=== PATIENT | female | born 1955 | race Caucasian/White ===

== ENCOUNTER 2020-08-01 20:23 | Emergency (ER) | payer MEDICARE ==
[~2020-08-01] VITALS: Ht 160 cm; Wt 72.3 kg
[2020-08-01] MEDS ORDERED: NOXI1TAB PO (20:34)
[2020-08-01] MEDS ORDERED: ALTA1CAP3 PO (20:34)
[2020-08-01 21:30] VITALS: BP 213/99
[2020-08-01] MEDS ORDERED: CYCLOBENZAPRINE 5MG TABLET PO ONE (22:35)
[2020-08-01] MEDS ORDERED: LIDOCAINE 5% (LIDODERM) PATCH TD ONE (22:35)
[2020-08-01] MEDS ORDERED: KETOROLAC 60MG 2ML VIAL IM ONE (22:35)
[2020-08-01] MEDS ORDERED: **hydrALAZINE** 10 MG TAB PO ONE (23:30)
[2020-08-01] MEDS ORDERED: LIDO0.052 TOP (23:35)
[2020-08-01] MEDS ORDERED: CYCL5TAB PO (23:35)
[2020-08-01] MEDS ORDERED: IBUP-1022 PO (23:35)
[2020-08-02 00:16] VITALS: BP 191/88
[2020-08-02] MEDS ORDERED: **NOTE PATIENT COMMENT** MISC XX SCH (21:00)
== END 2020-08-02 00:29 | disposition home or self-care (01) ==
LOC: M ED 20:23
DX: M54.30 Sciatica, unspecified side (principal); I10 Essential (primary) hypertension; Z88.0 Allergy status to penicillin; Z88.2 Allergy status to sulfonamides; Z88.1 Allergy status to other antibiotic agents
CPT/HCPCS: 96372; 99284; J1885

== ENCOUNTER 2020-08-03 16:31 | Emergency (ER) | payer MEDICARE ==
[~2020-08-03] VITALS: Ht 160 cm; Wt 71.8 kg
[~2020-08-03 16:31] MED LIST: ALTA1CAP3 PO; CYCL5TAB PO; IBUP-1022 PO; LIDO0.052 TOP; NOXI1TAB PO
--- NOTE | 2020-08-03 20:46 | REPVR ---
PROCEDURE INFORMATION: Exam: XR Chest Exam date and time: 08/03/2020 8:17 PM Age: 65 years old Clinical indication: Other: Elevated BP TECHNIQUE: Imaging protocol: XR of the chest. Views: 2 views. COMPARISON: No relevant prior studies available. FINDINGS: Lungs: Unremarkable. No consolidation. Pleural spaces: Unremarkable. No pleural effusion. No pneumothorax. Heart/Mediastinum: Unremarkable. No cardiomegaly. Vasculature: Uncoiled thoracic aorta. Bones/joints: Unremarkable. IMPRESSION: No acute findings. Electronically signed by: Theodore Palomo On 08/03/2020 20:45:47 PM
[2020-08-03 20:56] LABS: BASO % 0.4 % (0.0-1.0); EOS # 0.1 10^3/uL (0.0-0.5); EOS % 1.1 % (0.0-3.0); HEMATOCRIT 47.8 % (36.0-47.0); HEMOGLOBIN 16.1 g/dl (12.0-15.5); LYMPH # 2.3 10^3/uL (1.5-5.0); LYMPH % 27.2 % (24.0-44.0); MEAN CORPUSCULAR HEMOGLOBIN 29.2 pg (27.0-33.0); MEAN CORPUSCULAR HGB CONC 33.7 g/dl (32.0-36.5); MEAN CORPUSCULAR VOLUME 86.8 fl (80.0-96.0); MONO # 0.5 10^3/uL (0.0-0.8); MONO % 6.2 % (2.0-8.0); NEUTROPHILS # 5.6 10^3/uL (1.5-8.5); NEUTROPHILS % 64.9 % (36.0-66.0); PLATELET COUNT, AUTOMATED 248 10^3/uL (150-450); RED BLOOD COUNT 5.51 10^6/uL (4.00-5.40); WHITE BLOOD COUNT 8.6 10^3/uL (4.0-10.0)
[2020-08-03 21:27] LABS: CK-MB VALUE MASS < 1.0 NG/ML (<3.6); CPK CREATINE PHOSPHOKINASE 52 U/L (26-192); MB/CK RELATIVE INDEX 1.92 (< OR =4); TROPONIN I < 0.02 NG/ML (< 0.10)
[2020-08-03 22:01] VITALS: BP 182/95
--- NOTE | 2020-08-04 21:31 | ECGEPIP ---
[facility] - ED Test Date: 2020-08-03 Pat Name: ANGELLA ADEN Department: Room: - Gender: Female Parts Counterperson: [facility] : 1955 Requested By: RADHA Marquez PA-C Order Number: [id number] Reading MD: Flavia Granger Measurements Intervals [place] Rate: 87 P: 52 DE: 152 QRS: 9 QRSD: 82 T: 38 QT: 364 QTc: 438 Interpretive Statements Normal sinus rhythm Left ventricular hypertrophy with repolarization abnormality ( R in aVL , Sokolow-Vasquez , Johnson product ) NSTTW abnormalities No prior Vasquez , [place] product ) NSTTW abnormalities No prior Electronically Signed on 08-04-2020 21:31:30 EDT by Flavia Granger
== END 2020-08-03 22:01 | disposition home or self-care (01) ==
LOC: M ED 16:31
DX: I10 Essential (primary) hypertension (principal); M54.30 Sciatica, unspecified side; R79.89 Other specified abnormal findings of blood chemistry; Z86.79 Personal history of other diseases of the circulatory system; Z79.899 Other long term (current) drug therapy; Z88.0 Allergy status to penicillin; Z88.1 Allergy status to other antibiotic agents; Z88.2 Allergy status to sulfonamides

== ENCOUNTER → 2020-08-24 | Outpatient (CLI) | payer MEDICARE ==
[2020-08-24 11:02] LABS: MALB URINE SIEMENS 17.2 MG/L; MAU/CREAT RATIO 19.7 MCG/MG (0.0-30.0)
[2020-08-24 11:12] LABS: ALBUMIN 3.8 GM/DL (3.2-5.2); BLOOD UREA NITROGEN 22 MG/DL (7-18); CARBON DIOXIDE LEVEL 32 MEQ/L (21-32); CHLORIDE LEVEL 101 MEQ/L (98-107); CHOLESTEROL LEVEL 219 MG/DL (<200); CHOLESTEROL RISK RATIO 5.475 (<5); CREATININE FOR GFR 0.73 MG/DL (0.55-1.30); FREE T4 1.28 NG/DL (0.76-1.46); GLOMERULAR FILTRATION RATE > 60.0 (>45); GLUCOSE, FASTING 107 MG/DL (70-100); HDL CHOLESTEROL 40 MG/DL (>40); LDL CHOLESTEROL 153 MG/DL (<100); NON-HDL-C 179 MG/DL; PHOSPHORUS LEVEL 3.5 MG/DL (2.5-4.9); POTASSIUM SERUM 3.9 MEQ/L (3.5-5.1); SODIUM LEVEL 137 MEQ/L (136-145); TRIGLYCERIDES LEVEL 130 MG/DL (<150)
[2020-08-27 18:08] LABS: METANEPHRINE PLASMA 35.7 pg/mL (0.0-88.0); NORMETANEPHRINE PLASMA 137.9 pg/mL (0.0-191.8)
== END ==
LOC: M LAB 09:11
PROVIDERS: ATTEND Internal Medicine Cardiovascular Disease
DX: I10 Essential (primary) hypertension (principal)

== ENCOUNTER → 2020-08-25 | Outpatient (REF) | payer MEDICARE | LOC: M LAB 16:25 | PROVIDERS: ATTEND Internal Medicine Cardiovascular Disease | DX: I10 Essential (primary) hypertension (principal) ==

== ENCOUNTER → 2020-09-02 | Outpatient (CLI) | payer MEDICARE ==
--- NOTE | 2020-09-02 09:04 | REP ---
INDICATION: ESSENTIAL (PRIMARY) HYPERTENSION; HTN. COMPARISON: None. TECHNIQUE: Real-time sonographic evaluation of the kidneys is performed. Duplex Doppler evaluation of renal arteries performed. FINDINGS: Renal cortical echogenicity pattern is normal bilaterally and contours are smooth. There is no evidence of hydronephrosis, cyst, mass, or calculus in either kidney. The right kidney measures 11.9 x 4.5 x 4.5 cm. Left renal dimensions are 12.4 x 5.1 x 5.2 cm. Urinary bladder is empty. The peak systolic velocity of the abdominal aorta at the level of the renal arteries is 117.8 centimeters/second. The peak systolic velocity of the main right renal artery is 87.4 centimeter/second, renal to aortic ratio is 0.7. Resistive indices right kidney range between 0.73 and 0.74. Acceleration times range between 0.02 and 0.03. The peak systolic velocity of the main left renal artery is 75.2 centimeters/second, renal to aortic ratio 0.6. Resistive indices left kidney range between 0.72 and 0.77. Acceleration times range between 0.03 and 0.04. IMPRESSION: No compelling duplex Doppler sonographic evidence of hemodynamically significant stenosis of the renal arteries bilaterally. <Electronically signed by Pato Zhu > 09/02/20 [id number]
== END ==
LOC: M RAD 07:36
PROVIDERS: ATTEND Internal Medicine Cardiovascular Disease
DX: I10 Essential (primary) hypertension (principal)

== ENCOUNTER → 2020-09-05 | Outpatient (CLI) | payer MEDICARE ==
--- NOTE | 2020-09-05 13:44 | REPVR ---
PROCEDURE INFORMATION: Exam: MR Lumbar Spine Without Contrast. Exam date and time: 09/05/2020 11:43 AM Age: 65 years old Clinical indication: Condition or disease; Disc degeneration; Lumbar region TECHNIQUE: Imaging protocol: Multiplanar magnetic resonance images of the lumbar spine without contrast. COMPARISON: RENAL US 09/02/2020 7:49 AM FINDINGS: Normal lumbar lordosis. No spondylolisthesis or marrow edema to suggest acute osseous injury. Heterogeneous marrow signal intensity likely from fatty infiltration. Degenerative disc disease, moderate at L5-S1 with type 3 reactive endplate signal changes. The distal spinal cord appears normal. At L1-L2, there is no significant spinal canal or neural foraminal narrowing. At L2-L3, there is no significant spinal canal or neural foraminal narrowing. At L3-L4, there is a left paracentral/foraminal zone disc extrusion with superior migration measuring 1.9 x 0.8 x 1.8 cm, with disruption of the disc best seen sagittal T1 image 6. This lesion effaces the left lateral recess with mass effect on the traversing L4 nerve roots. Mild spinal canal narrowing. Mild left neural foraminal narrowing with slight displacement of the exiting nerve root. At L4-L5, there is mild circumferential disc bulge and a small right foraminal zone disc protrusion. No significant spinal canal stenosis. Mild bilateral neural foraminal narrowing. Moderate bilateral facet arthrosis. At L5-S1, there is a small central disc protrusion and mild discogenic osteophytes. No significant spinal canal stenosis. Minimal bilateral inferior neural foraminal narrowing. Moderate bilateral facet arthrosis. IMPRESSION: Multilevel lumbar spine degenerative change most pronounced at L3-L4 with a left paracentral/foraminal zone disc extrusion with superior migration displacing the traversing L4 nerve roots in the lateral recess. Electronically signed by: Reji Min On 09/05/2020 13:44:21 PM
== END ==
LOC: M RAD 09:40
PROVIDERS: ATTEND Physician Assistant
DX: M51.36 Other intervertebral disc degeneration, lumbar region (principal)

== ENCOUNTER → 2020-09-07 | Outpatient (CLI) | payer MEDICARE | LOC: M LAB 08:47 | PROVIDERS: ATTEND Internal Medicine Cardiovascular Disease | DX: E24.9 Cushing's syndrome, unspecified (principal); I10 Essential (primary) hypertension ==

== ENCOUNTER → 2020-09-09 | Outpatient (CLI) | payer MEDICARE ==
[2020-09-09 10:54] LABS: HEMOGLOBIN A1c 5.7 %
[2020-09-09 11:05] LABS: BLOOD UREA NITROGEN 19 MG/DL (7-18); CALCIUM LEVEL 8.8 MG/DL (8.8-10.2); CARBON DIOXIDE LEVEL 29 MEQ/L (21-32); CHLORIDE LEVEL 102 MEQ/L (98-107); CREATININE FOR GFR 0.74 MG/DL (0.55-1.30); GLOMERULAR FILTRATION RATE > 60.0 (>45); GLUCOSE, FASTING 103 MG/DL (70-100); POTASSIUM SERUM 3.8 MEQ/L (3.5-5.1); SODIUM LEVEL 137 MEQ/L (136-145)
== END ==
LOC: M LAB 09:16
PROVIDERS: ATTEND Internal Medicine Cardiovascular Disease
DX: I10 Essential (primary) hypertension (principal); Z79.899 Other long term (current) drug therapy

== ENCOUNTER → 2021-02-02 | Outpatient (CLI) | payer MEDICARE ==
[2021-02-02 11:13] LABS: ALBUMIN 3.7 GM/DL (3.2-5.2); ALT/SGPT 33 U/L (12-78); BLOOD UREA NITROGEN 18 MG/DL (7-18); CALCIUM LEVEL 9.5 MG/DL (8.8-10.2); CARBON DIOXIDE LEVEL 32 MEQ/L (21-32); CHLORIDE LEVEL 102 MEQ/L (98-107); CHOLESTEROL LEVEL 167 MG/DL (<200); CHOLESTEROL RISK RATIO 4.282 (<5); CREATININE FOR GFR 0.82 MG/DL (0.55-1.30); GLOMERULAR FILTRATION RATE > 60.0 (>45); GLUCOSE, FASTING 117 MG/DL (70-100); HDL CHOLESTEROL 39 MG/DL (>40); LDL CHOLESTEROL 95 MG/DL (<100); NON-HDL-C 128 MG/DL; POTASSIUM SERUM 3.9 MEQ/L (3.5-5.1); SODIUM LEVEL 139 MEQ/L (136-145); TOTAL PROTEIN 7.1 GM/DL (6.4-8.2); TRIGLYCERIDES LEVEL 167 MG/DL (<150)
[2021-02-02 11:29] LABS: MAU/CREAT RATIO 15.9 MCG/MG (0.0-30.0)
[2021-02-02 13:58] LABS: TOTAL 25(OH) VITAMIN D 54.8 NG/ML (30.0-100.0)
== END ==
LOC: M PLALAB 08:40
PROVIDERS: ATTEND Nurse Practitioner Family
DX: I10 Essential (primary) hypertension (principal); Z79.899 Other long term (current) drug therapy

== ENCOUNTER → 2021-07-01 | Outpatient (CLI) | payer MEDICARE ==
[2021-07-01 10:24] LABS: HEMATOCRIT 42.3 % (36.0-47.0); HEMOGLOBIN 14.3 g/dl (12.0-15.5); MEAN CORPUSCULAR HEMOGLOBIN 29.8 pg (27.0-33.0); MEAN CORPUSCULAR HGB CONC 33.8 g/dl (32.0-36.5); MEAN CORPUSCULAR VOLUME 88.1 fl (80.0-96.0); PLATELET COUNT, AUTOMATED 238 10^3/uL (150-450); WHITE BLOOD COUNT 4.7 10^3/uL (4.0-10.0)
[2021-07-01 10:47] LABS: ERYTHROCYTE SEDIMENTATION RATE 3 mm/hr (0-30)
[2021-07-01 10:54] LABS: ALBUMIN 3.9 GM/DL (3.2-5.2); ALT/SGPT 37 U/L (12-78); BILIRUBIN,TOTAL 1.2 MG/DL (0.2-1.0); BLOOD UREA NITROGEN 19 MG/DL (7-18); C REACTIVE PROTEIN QUANTITATIV 1.24 MG/DL (0.00-0.30); CALCIUM LEVEL 9.1 MG/DL (8.8-10.2); CARBON DIOXIDE LEVEL 29 MEQ/L (21-32); CHLORIDE LEVEL 103 MEQ/L (98-107); CHOLESTEROL LEVEL 158 MG/DL (<200); CHOLESTEROL RISK RATIO 4.787 (<5); CREATININE FOR GFR 0.64 MG/DL (0.55-1.30); GLOMERULAR FILTRATION RATE > 60.0 (>45); GLUCOSE, FASTING 124 MG/DL (70-100); HDL CHOLESTEROL 33 MG/DL (>40); LDL CHOLESTEROL 103 MG/DL (<100); NON-HDL-C 125 MG/DL; RHEUMATOID FACTOR QUANT < 10.0 IU/ML (<15.0); SODIUM LEVEL 142 MEQ/L (136-145); TOTAL PROTEIN 7.6 GM/DL (6.4-8.2); TRIGLYCERIDES LEVEL 112 MG/DL (<150)
[2021-07-01 11:02] LABS: TOTAL 25(OH) VITAMIN D 53.4 NG/ML (30.0-100.0)
[2021-07-01 11:07] LABS: ATYPICAL LYMPH 2 % (0-5); EOSINOPHILS 2 % (0-3); LYMPHOCYTES 38 % (16-44); MONOCYTES 5 % (0-5); NEUTROPHILS 53 % (28-66); PLATELET ESTIMATE NORMAL (NORMAL)
[2021-07-01 11:08] LABS: OVALOCYTES 1+
[2021-07-03 00:11] LABS: ANA (HEP2) Negative (.); CYCLIC CITRULLINATED PEPTIDE 7 units (0-19)
== END ==
LOC: M PLALAB 08:51
PROVIDERS: ATTEND Physician Assistant Medical
DX: R73.03 Prediabetes (principal); E55.9 Vitamin D deficiency, unspecified; I10 Essential (primary) hypertension; E78.2 Mixed hyperlipidemia; M25.541 Pain in joints of right hand; M25.542 Pain in joints of left hand; Z79.899 Other long term (current) drug therapy

== ENCOUNTER → 2021-09-22 | Outpatient (CLI) | payer MEDICARE | LOC: M WHC 14:18 | PROVIDERS: ATTEND Physician Assistant Medical | DX: Z12.31 Encounter for screening mammogram for malignant neoplasm of breast (principal) ==

== ENCOUNTER → 2021-12-15 | Outpatient (CLI) | payer MEDICARE | LOC: M WHC 09:04 | PROVIDERS: ATTEND Physician Assistant Medical | DX: M81.0 Age-related osteoporosis without current pathological fracture (principal) ==

== ENCOUNTER → 2022-05-17 | Outpatient (CLI) | payer MEDICARE ==
[2022-05-17 11:03] LABS: BASO % 0.7 % (0.0-1.0); EOS # 0.1 10^3/uL (0.0-0.5); EOS % 2.2 % (0.0-3.0); HEMATOCRIT 43.5 % (36.0-47.0); HEMOGLOBIN 14.9 g/dl (12.0-15.5); LYMPH # 1.7 10^3/uL (1.5-5.0); LYMPH % 28.9 % (24.0-44.0); MEAN CORPUSCULAR HEMOGLOBIN 29.6 pg (27.0-33.0); MEAN CORPUSCULAR HGB CONC 34.3 g/dl (32.0-36.5); MEAN CORPUSCULAR VOLUME 86.5 fl (80.0-96.0); MONO # 0.4 10^3/uL (0.0-0.8); MONO % 6.4 % (2.0-8.0); NEUTROPHILS # 3.6 10^3/uL (1.5-8.5); NEUTROPHILS % 61.5 % (36.0-66.0); PLATELET COUNT, AUTOMATED 270 10^3/uL (150-450); RED BLOOD COUNT 5.03 10^6/uL (4.00-5.40); WHITE BLOOD COUNT 5.8 10^3/uL (4.0-10.0)
[2022-05-17 11:13] LABS: ALBUMIN 3.8 G/DL (3.2-5.2); ALKALINE PHOSPHATASE 53 U/L (46-116); ALT/SGPT 42 U/L (7.0-40); AST/SGOT 27 U/L (<34); BILIRUBIN,TOTAL 1.5 MG/DL (0.3-1.2); BLOOD UREA NITROGEN 16 MG/DL (9-23); CALCIUM LEVEL 9.1 MG/DL (8.3-10.6); CARBON DIOXIDE LEVEL 31 MMOL/L (20-31); CHLORIDE LEVEL 101 MMOL/L (98-107); CHOLESTEROL LEVEL 149 MG/DL (<200); CHOLESTEROL RISK RATIO 4.23 (<5); GLOMERULAR FILTRATION RATE > 60.0 (>45); GLUCOSE, FASTING 127 MG/DL (74-106); HDL CHOLESTEROL 35.2 MG/DL (>40); LDL CHOLESTEROL 89.4 MG/DL (<100); NON-HDL-C 114 MG/DL; POTASSIUM SERUM 4.1 MMOL/L (3.5-5.1); SODIUM LEVEL 139 MMOL/L (136-145); TOTAL PROTEIN 7.2 G/DL (5.7-8.2); TRIGLYCERIDES LEVEL 122 MG/DL (<150)
[2022-05-17 11:14] LABS: PTH INTACT 49.8 PG/ML (18.5-88.0)
[2022-05-17 11:47] LABS: HEMOGLOBIN A1c 6.2 % (4.0-6.0)
[2022-05-17 13:53] LABS: BILIRUBIN,DIRECT 0.4 MG/DL (<0.4)
[2022-05-17 16:00] LABS: HEPATITIS B SURFACE ANTIBODY NEGATIVE (POSITIVE)
[2022-05-17 16:11] LABS: HEPATITIS B SURFACE ANTIGEN NEGATIVE (NEGATIVE)
== END ==
LOC: M PLALAB 08:42
PROVIDERS: ATTEND Physician Assistant Medical
DX: R73.03 Prediabetes (principal); E78.00 Pure hypercholesterolemia, unspecified

== ENCOUNTER → 2022-05-26 | Outpatient (REF) | payer MEDICARE ==
[2022-05-30 18:07] LABS: AFP TUMOR TOTAL 4.6 ng/mL (0.0-9.2)
== END ==
LOC: M SFHCPLAZ 09:37
PROVIDERS: ATTEND Physician Assistant Medical
DX: R79.89 Other specified abnormal findings of blood chemistry (principal)

== ENCOUNTER → 2023-05-25 | Outpatient (CLI) | payer MEDICARE ==
[2023-05-25 11:41] LABS: BASO % 0.5 % (0.0-1.0); EOS # 0.2 10^3/uL (0.0-0.5); EOS % 2.9 % (0.0-3.0); HEMATOCRIT 42.2 % (36.0-47.0); HEMOGLOBIN 14.6 g/dl (12.0-15.5); LYMPH # 1.9 10^3/uL (1.5-5.0); LYMPH % 32.7 % (24.0-44.0); MEAN CORPUSCULAR HEMOGLOBIN 29.4 pg (27.0-33.0); MEAN CORPUSCULAR HGB CONC 34.6 g/dl (32.0-36.5); MEAN CORPUSCULAR VOLUME 84.9 fl (80.0-96.0); MONO # 0.4 10^3/uL (0.0-0.8); MONO % 6.4 % (2.0-8.0); NEUTROPHILS # 3.4 10^3/uL (1.5-8.5); NEUTROPHILS % 57.2 % (36.0-66.0); PLATELET COUNT, AUTOMATED 263 10^3/uL (150-450); RED BLOOD COUNT 4.97 10^6/uL (4.00-5.40); WHITE BLOOD COUNT 5.9 10^3/uL (4.0-10.0)
[2023-05-25 12:12] LABS: ALBUMIN 3.8 G/DL (3.2-5.2); ALKALINE PHOSPHATASE 55 U/L (46-116); ALT/SGPT 33 U/L (7.0-40); AST/SGOT 25 U/L (<34); BILIRUBIN,TOTAL 1.7 MG/DL (0.3-1.2); BLOOD UREA NITROGEN 18 MG/DL (9-23); CARBON DIOXIDE LEVEL 33 MMOL/L (20-31); CHLORIDE LEVEL 100 MMOL/L (98-107); CHOLESTEROL LEVEL 139 MG/DL (<200); CHOLESTEROL RISK RATIO 4.07 (<5); CREATININE FOR GFR 0.77 MG/DL (0.55-1.30); GLOMERULAR FILTRATION RATE > 60.0 (>39); GLUCOSE, FASTING 118 MG/DL (74-106); HDL CHOLESTEROL 34.1 MG/DL (>40); LDL CHOLESTEROL 79.5 MG/DL (<100); NON-HDL-C 104.9 MG/DL; POTASSIUM SERUM 3.9 MMOL/L (3.5-5.1); PTH INTACT 42.7 PG/ML (18.5-88.0); SODIUM LEVEL 137 MMOL/L (136-145); TOTAL PROTEIN 7.3 G/DL (5.7-8.2); TRIGLYCERIDES LEVEL 127 MG/DL (<150)
[2023-05-25 12:13] LABS: TOTAL 25(OH) VITAMIN D 55.8 NG/ML (20.0-100.0)
[2023-05-25 12:33] LABS: HEMOGLOBIN A1c 6.3 % (4.0-6.0)
== END ==
LOC: M PLALAB 08:30
PROVIDERS: ATTEND Physician Assistant Medical
DX: I10 Essential (primary) hypertension (principal); E78.2 Mixed hyperlipidemia; R73.03 Prediabetes; E55.9 Vitamin D deficiency, unspecified

== ENCOUNTER → 2023-07-19 | Outpatient (REF) | payer MEDICARE | LOC: M SFHCPLAZ 12:52 | PROVIDERS: ATTEND Physician Assistant Medical | DX: L82.1 Other seborrheic keratosis (principal) ==

== ENCOUNTER → 2023-10-03 | Outpatient (CLI) | payer MEDICARE | LOC: M WHC 07:04 | PROVIDERS: ATTEND Physician Assistant Medical | DX: Z12.31 Encounter for screening mammogram for malignant neoplasm of breast (principal) ==

== ENCOUNTER → 2023-10-23 | Outpatient (CLI) | payer MEDICARE | LOC: M WHC 14:01 | PROVIDERS: ATTEND Physician Assistant Medical | DX: R92.2 Inconclusive mammogram (principal) | CPT/HCPCS: 77065; G0279 ==

== ENCOUNTER → 2023-11-28 | Outpatient (CLI) | payer MEDICARE ==
[2023-11-28 10:41] LABS: ALBUMIN 3.9 G/DL (3.2-5.2); ALKALINE PHOSPHATASE 74 U/L (46-116); ALT/SGPT 40 U/L (7.0-40); AST/SGOT 27 U/L (<34); BILIRUBIN,TOTAL 1.9 MG/DL (0.3-1.2); BLOOD UREA NITROGEN 15 MG/DL (9-23); CALCIUM LEVEL 9.4 MG/DL (8.3-10.6); CARBON DIOXIDE LEVEL 32 MMOL/L (20-31); CHLORIDE LEVEL 101 MMOL/L (98-107); CREATININE FOR GFR 0.75 MG/DL (0.55-1.30); GLOMERULAR FILTRATION RATE > 60.0 (>39); GLUCOSE, FASTING 139 MG/DL (74-106); POTASSIUM SERUM 4.1 MMOL/L (3.5-5.1); SODIUM LEVEL 138 MMOL/L (136-145); TOTAL PROTEIN 7.5 G/DL (5.7-8.2)
[2023-11-28 10:48] LABS: HEMOGLOBIN A1c 6.2 % (4.0-6.0)
== END ==
LOC: M PLALAB 09:05
PROVIDERS: ATTEND Physician Assistant Medical
DX: R73.03 Prediabetes (principal); I10 Essential (primary) hypertension

== ENCOUNTER → 2023-12-18 | Outpatient (CLI) | payer MEDICARE | LOC: M WHC 08:17 | PROVIDERS: ATTEND Physician Assistant Medical | DX: M81.0 Age-related osteoporosis without current pathological fracture (principal) ==

== ENCOUNTER 2024-05-15 12:13 | Day surgery (SDC) | payer MEDICARE ==
[~2024-05-15] VITALS: Ht 162.6 cm; Wt 74.4 kg
[~2024-05-15 12:13] MED LIST changes: +AMLO1TAB24 PO; +ATOR1TAB21 PO; +CHLO25TA PO; -CYCL5TAB PO; +CYCL5TAB4 PO; +METO1TAB7 PO; +POTA-149 PO; +RAMI10CA64 PO; +THERTAB52 PO; +TUMS500C PO; +VIAC1CHW PO; +VITA200038 PO
[2024-05-15] MEDS ORDERED: propofoL 200 MG/20 ML VIAL As Ordered ONE (13:53)
[2024-05-15] MEDS ORDERED: LIDOCAINE 2% 100MG/5ML SDV (FOR ANES.) As Ordered ONE (13:53)
[2024-05-15 14:05] VITALS: TEMP 97.9
[2024-05-15 14:24] VITALS: BP 135/69; O2SAT 99
== END 2024-05-15 14:50 | disposition home or self-care (01) ==
LOC: M OPP 12:13
PROVIDERS: ATTEND Surgery
DX: K63.5 Polyp of colon (principal); Z86.0100 Personal history of colon polyps, unspecified; K57.30 Diverticulosis of large intestine without perforation or abscess without bleeding; I10 Essential (primary) hypertension; E78.00 Pure hypercholesterolemia, unspecified; M19.90 Unspecified osteoarthritis, unspecified site; M79.7 Fibromyalgia; G43.909 Migraine, unspecified, not intractable, without status migrainosus; J44.9 Chronic obstructive pulmonary disease, unspecified; Z88.0 Allergy status to penicillin; Z88.2 Allergy status to sulfonamides; Z91.013 Allergy to seafood; Z91.018 Allergy to other foods; Z79.899 Other long term (current) drug therapy

== ENCOUNTER → 2024-05-28 | Outpatient (CLI) | payer MEDICARE ==
[2024-05-28 14:30] LABS: BASO % 0.6 % (0.0-1.0); EOS # 0.1 10^3/uL (0.0-0.5); EOS % 1.9 % (0.0-3.0); HEMATOCRIT 44.6 % (36.0-47.0); LYMPH # 1.8 10^3/uL (1.5-5.0); LYMPH % 25.8 % (24.0-44.0); MEAN CORPUSCULAR HEMOGLOBIN 29.1 pg (27.0-33.0); MEAN CORPUSCULAR HGB CONC 33.6 g/dl (32.0-36.5); MEAN CORPUSCULAR VOLUME 86.6 fl (80.0-96.0); MONO # 0.4 10^3/uL (0.0-0.8); MONO % 6.2 % (2.0-8.0); NEUTROPHILS # 4.5 10^3/uL (1.5-8.5); NEUTROPHILS % 65.2 % (36.0-66.0); PLATELET COUNT, AUTOMATED 280 10^3/uL (150-450); RED BLOOD COUNT 5.15 10^6/uL (4.00-5.40); WHITE BLOOD COUNT 6.9 10^3/uL (4.0-10.0)
[2024-05-28 14:36] LABS: ALBUMIN 3.9 G/DL (3.2-5.2); ALKALINE PHOSPHATASE 63 U/L (35-104); ALT/SGPT 29 U/L (7.0-40); AST/SGOT 20 U/L (<34); BILIRUBIN,TOTAL 1.6 MG/DL (0.3-1.2); BLOOD UREA NITROGEN 22 MG/DL (9-23); CALCIUM LEVEL 9.6 MG/DL (8.3-10.6); CARBON DIOXIDE LEVEL 32 MMOL/L (20-31); CHLORIDE LEVEL 101 MMOL/L (98-107); CHOLESTEROL LEVEL 155 MG/DL (<200); CHOLESTEROL RISK RATIO 3.85 (<5); CREATININE FOR GFR 0.76 MG/DL (0.55-1.30); GLOMERULAR FILTRATION RATE > 60.0 (>39); GLUCOSE, FASTING 122 MG/DL (74-106); HDL CHOLESTEROL 40.2 MG/DL (>40); LDL CHOLESTEROL 91.4 MG/DL (<100); NON-HDL-C 114.8 MG/DL; POTASSIUM SERUM 4.3 MMOL/L (3.5-5.1); PTH INTACT 42.8 PG/ML (18.5-88.0); SODIUM LEVEL 140 MMOL/L (136-145); TOTAL PROTEIN 7.6 G/DL (5.7-8.2); TRIGLYCERIDES LEVEL 117 MG/DL (<150)
[2024-05-28 14:37] LABS: TOTAL 25(OH) VITAMIN D 53.9 NG/ML (20.0-100.0)
[2024-05-28 14:46] LABS: HEMOGLOBIN A1c 6.1 % (4.0-6.0)
== END ==
LOC: M PLALAB 09:54
PROVIDERS: ATTEND Physician Assistant Medical
DX: I10 Essential (primary) hypertension (principal); J30.2 Other seasonal allergic rhinitis; E78.2 Mixed hyperlipidemia; R73.03 Prediabetes; E55.9 Vitamin D deficiency, unspecified

== ENCOUNTER → 2024-11-28 | Outpatient (REF) | payer MEDICARE ==
[~2024-11-28] MED LIST changes: -IBUP-1022 PO; +IBUP600T42 PO
== END ==
LOC: M LAB REF 13:22
PROVIDERS: ATTEND Physician Assistant Medical
DX: J06.9 Acute upper respiratory infection, unspecified (principal)

== ENCOUNTER → 2024-11-29 | Outpatient (CLI) | payer MEDICARE ==
[2024-11-29 13:53] LABS: ALT/SGPT 37.0 U/L (7.0-40); AST/SGOT 24.0 U/L (<34); CALCIUM LEVEL 9.1 MG/DL (8.3-10.6); CARBON DIOXIDE LEVEL 31.0 MMOL/L (20-31); CHLORIDE LEVEL 104.0 MMOL/L (98-107); CREATININE FOR GFR 0.73 MG/DL (0.55-1.30); GLOMERULAR FILTRATION RATE 87.9 (>39); POTASSIUM SERUM 4.3 MMOL/L (3.5-5.1); SODIUM LEVEL 141.0 MMOL/L (136-145)
== END ==
LOC: M PLALAB 08:48
PROVIDERS: ATTEND Physician Assistant Medical
DX: R17 Unspecified jaundice (principal)

== ENCOUNTER → 2024-12-02 | Outpatient (CLI) | payer MEDICARE | LOC: M WHC 11:14 | PROVIDERS: ATTEND Physician Assistant Medical | DX: Z12.31 Encounter for screening mammogram for malignant neoplasm of breast (principal); R92.333 Mammographic heterogeneous density, bilateral breasts ==